=== PATIENT | male | born 1960 | race Caucasian/White ===

== ENCOUNTER → 2018-10-10 | Outpatient (CLI) | payer OTHER ==
[~2018-10-10] MED LIST: ASPI81CH; Aldactone50 MG PO; FISH1000 PO; FLUT.05NI; LEVFLO500 PO; METF500 PO; Multiple Vitam1 EAC1 PO; OXYACE5T; Pravachol40 MG PO; TRAN4; VALSARTAN160 MG PO
[2018-10-10 09:59] LABS: Bacteria Not Seen /hpf; Red Blood Cells, Urine Not Seen /hpf (0-2); Squamous Epithelial Cells Few /hpf (Few); White Blood Cells, Urine Not Seen /hpf (0-5)
== END | disposition home or self-care (01) ==
LOC: LAB EV 09:41 → LAB SHORT 09:41
PROVIDERS: Physician Assistant
DX: E11.9 Type 2 diabetes mellitus without complications (principal)
CPT/HCPCS: 81015

== ENCOUNTER → 2020-10-05 | Outpatient (CLI) | payer OTHER ==
[2020-10-07 15:37] LABS: CORONAVIRUS (COVID19) CSH-NRL Negative (Negative)
== END ==
LOC: LAB SHORT 12:00
PROVIDERS: Family Medicine
DX: Z20.828 Contact with and (suspected) exposure to other viral communicable diseases (principal)
CPT/HCPCS: U0003

== ENCOUNTER 2022-05-23 11:53 | Day surgery (SDC) | payer OTHER ==
[~2022-05-23] VITALS: Ht 177.8 cm; Wt 109.2 kg
[~2022-05-23 11:53] MED LIST changes: +AMLO10 PO; +FENO160 PO; +HYDCHL25 PO; +LOSA50 PO; +METFORMIN HCL500 MG; +OCUFLOX510; +POTA10T PO; +TOPROL XL25 MG PO
== END 2022-05-23 13:33 | disposition home or self-care (01) ==
LOC: ORSCSDS 11:53
PROVIDERS: Internal Medicine Gastroenterology
PROC: 0DBM8ZX Excision of Descending Colon, Via Natural or Artificial Opening Endoscopic, Diagnostic (ICD-10-PCS; principal; 2022-05-23 13:15)
PROC: 0DBP8ZX Excision of Rectum, Via Natural or Artificial Opening Endoscopic, Diagnostic (ICD-10-PCS; principal; 2022-05-23 13:15)
DX: Z12.11 Encounter for screening for malignant neoplasm of colon (principal); D12.4 Benign neoplasm of descending colon; D12.8 Benign neoplasm of rectum; D37.4 Neoplasm of uncertain behavior of colon; K57.30 Diverticulosis of large intestine without perforation or abscess without bleeding; Z86.010 Personal history of colon polyps; Z83.71 Family history of colonic polyps; K76.0 Fatty (change of) liver, not elsewhere classified; I10 Essential (primary) hypertension; E11.9 Type 2 diabetes mellitus without complications; Z87.891 Personal history of nicotine dependence; Z79.84 Long term (current) use of oral hypoglycemic drugs; Z79.899 Other long term (current) drug therapy
CPT/HCPCS: 82947; 88305; J2704; J7120